=== PATIENT | male | born 1985 | race Caucasian/White ===

== ENCOUNTER 2016-05-08 15:41 | Outpatient (CLI) | payer OTHER | END 2016-05-08 15:42 | disposition home or self-care (01) | DX: S82.142A Displaced bicondylar fracture of left tibia, initial encounter for closed fracture (principal); S83.512A Sprain of anterior cruciate ligament of left knee, initial encounter; S72.422A Displaced fracture of lateral condyle of left femur, initial encounter for closed fracture; S83.412A Sprain of medial collateral ligament of left knee, initial encounter ==

== ENCOUNTER 2016-06-27 05:44 | Day surgery (SDC) | payer OTHER ==
[2016-06-27] MEDS ORDERED: ceFAZolin 2 GM/50 ML 50 ML IV ONE (06:27)
[2016-06-27] MEDS ORDERED: CELECOXIB 100 MG CAPSULE PO ONE (07:24)
[2016-06-27] MEDS ORDERED: LACTATED RINGERS 1,000 ML IV ONE ×2 (07:29→09:22)
[2016-06-27] MEDS ORDERED: SUCCINYLCHOLINE 200 MG/10 ML VIAL IVP ONE (08:45)
[2016-06-27] MEDS ORDERED: DEXAMETHASONE 4 MG/ML VIAL IVP ONE (08:45)
[2016-06-27] MEDS ORDERED: ROCURONIUM 50 MG/5 ML VIAL IVP ONE (08:45)
[2016-06-27] MEDS ORDERED: ONDANSETRON 4 MG/2 ML VIAL IVP ONE (08:45)
[2016-06-27] MEDS ORDERED: LIDOCAINE-PF 2% 10 ML AMP SUBQ ONE (08:45)
[2016-06-27] MEDS ORDERED: PROPOFOL 200 MG/20 ML VIAL IVP ONE (08:45)
[2016-06-27] MEDS ORDERED: ACETAMINOPHEN 1,000 MG/100 ML VIAL IV ONE (08:45)
[2016-06-27] MEDS ORDERED: fentaNYL 100 MCG/2 ML VIAL IVP ONE (08:45)
[2016-06-27] MEDS ORDERED: MIDAZOLAM 2 MG/2 ML VIAL IVP ONE (08:45)
[2016-06-27] MEDS ORDERED: BACITRACIN 50,000 UNIT VIAL IM ONE (08:48)
[2016-06-27] MEDS ORDERED: EPINEPHrine 1 MG/ML AMP IVP ONE ×2 (08:50→09:00)
[2016-06-27] MEDS ORDERED: BUPIVACAINE 0.25% PF 30 ML VIAL SUBQ ONE (10:16)
[2016-06-27] MEDS: MEPERIDINE 50 MG/ML SYRINGE ONE ×2 (10:40→10:56)
[2016-06-27] MEDS: HYDROmorphone 1 MG/ML SYRINGE ONE ×2 (11:03→11:12)
[2016-06-27] MEDS ORDERED: oxyCOD/ACETAMIN 5 MG/325 MG TABLET PO ONE (11:44)
== END 2016-06-27 05:45 | disposition home or self-care (01) ==
PROC: 0SJD4ZZ Inspection of Left Knee Joint, Percutaneous Endoscopic Approach (ICD-10-PCS; 2016-06-27)
PROC: 0MUP0KZ Supplement Left Knee Bursa and Ligament with Nonautologous Tissue Substitute, Open Approach (ICD-10-PCS; principal; 2016-06-27 07:30)
DX: S83.512A Sprain of anterior cruciate ligament of left knee, initial encounter (principal); X50.1XXA Overexertion from prolonged static or awkward postures, initial encounter; Z53.33 Arthroscopic surgical procedure converted to open procedure; Z83.2 Family history of diseases of the blood and blood-forming organs and certain disorders involving the immune mechanism; F17.220 Nicotine dependence, chewing tobacco, uncomplicated
CPT/HCPCS: 27428; 73560; A9270; C1713; C1762; J0131; J0690; J1170; J7120